=== PATIENT | female | born 1950 | race Two or more races ===

== ENCOUNTER 2019-02-22 06:30 | Day surgery (SDC) | payer OTHER | END 2019-02-22 11:35 | disposition home or self-care (01) | LOC: AMB-ENDOS 06:30 | DX: D12.2 Benign neoplasm of ascending colon (principal) ==

== ENCOUNTER 2020-04-17 09:50 | Day surgery (SDC) | payer OTHER | END 2020-04-17 15:50 | disposition home or self-care (01) | LOC: AMB-ENDOS 09:50 | PROVIDERS: ATTEND Surgery | DX: D12.2 Benign neoplasm of ascending colon (principal); Z20.822 Contact with and (suspected) exposure to COVID-19 ==